=== PATIENT | male | born 1945 | race Caucasian/White ===

== ENCOUNTER 2025-03-09 14:12 | Emergency (ER) | payer MEDICARE, SELFPAY ==
--- NOTE | ~2025-03-09 | XR_ITS ---
Clinical history:Left chest pain EXAM:X-ray chest one view portable TECHNIQUE:AP portable upright frontal Comparisons:None available FINDINGS: Heart is not enlarged. No pneumothorax. No pleural effusion. No free air the diaphragm. Small opacities in the mid and lower lungs. IMPRESSION: 1. Small opacities in the mid and lower lungs which represents atelectasis/scarring or infiltrates. If symptoms persist or worsen, consider a short-term follow-up study or additional imaging for further assessment. Reviewed, dictated and finalized at location Q. IMPRESSION: 1. Small opacities in the mid and lower lungs which represents atelectasis/scar ring or infiltrates. If symptoms persist or worsen, consider a short-term follow-up study or additio nal imaging for further assessment.
[2025-03-09 14:12] VITALS: BP 160/91; PULSE 60; RESP 18; TEMP 36.6; O2SAT 99
--- NOTE | 2025-03-09 14:15 | ECG_ITS ---
Test Date: 2025-03-09 14:19:07 Measurements Intervals [place] Rate: 47 P: -7 [place]: 182 QRS: 5 QRSD: 122 T: 20 QT: 454 QTc: 403 Interpretive Statements SINUS BRADYCARDIA INCOMPLETE RIGHT BUNDLE BRANCH BLOCK BORDERLINE T WAVE ABNORMALITY- INFERIOR LEADS BASELINE ARTIFACT- I, II, III, AVR, AVL, AVF, V2 ABNORMAL ECG No previous ECG available for comparison Electronically Signed On 03-09-2025 14:41:45 CDT by Dennys Stringer D.O.
--- NOTE | 2025-03-09 14:30 | ED_ITS ---
HPI - Extremity Injury (Upper) General Chief Complaint: Extremity Injury, Upper Stated Complaint: left shoulder pain Time Seen by Provider: 03/09/25 14:15 Course Vital Signs Vital signs: Vital Signs Temperature 36.6 C 03/09/25 14:12 Pulse Rate 60 03/09/25 14:12 Respiratory Rate 18 03/09/25 14:12 Blood Pressure 160/91 H 03/09/25 14:12 Pulse Oximetry 99 03/09/25 14:12 Oxygen Delivery Room Air 03/09/25 14:12 Temperature 36.6 C 03/09/25 14:12 Pulse Rate 60 03/09/25 14:12 Respiratory Rate 18 03/09/25 14:12 Blood Pressure 160/91 H 03/09/25 14:12 Pulse Oximetry 99 03/09/25 14:12 Oxygen Delivery Room Air 03/09/25 14:12 Discharge Plan Discharge Patient Language: Norwegian Follow-up/Referrals: UNKNOWN,DOCTOR [Primary Care Provider]
--- NOTE | 2025-03-09 14:38 | ED_ITS ---
HPI - Chest Pain General Chief Complaint: Extremity Injury, Upper Stated Complaint: left shoulder pain Time Seen by Provider: 03/09/25 14:15 Source: patient Mode of arrival: ambulatory Limitations: no limitations History of Present Illness HPI narrative: 79-year-old male with a history of hypertension, dyslipidemia, BPH, dementia presents to the ED with a 3 day history --left chest pain. No radiation of the pain. 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 No lightheadedness or dizziness. No shortness of breath. No fever or chills. No injury to the left shoulder No history of a prior stress test or cardiac catheterization. MD complaint: chest pain Onset (ago): day(s) (Three days) Timing of current episode: constant Prior episodes: No Onset: during rest Pain location: left chest Pain radiation: left shoulder Severity: moderate Pain scale (0-10): 6 Quality: aching Relieving factors: nothing Exacerbating factors: nothing Treatment prior to arrival: none and aspirin Risk Factors Coronary artery disease risk factors: hyperlipidemia and hypertension Thoracic aortic dissection risk factors: longstanding hypertension Review of Systems 2 Review of Systems: All systems reviewed & are unremarkable except as noted in HPI and below Constitutional: Constitutional: Reports as per HPI and Reports no additional constitutional complaints Eyes: Eyes: Reports as per HPI and Reports no additional eye complaints ENT: Reports system reviewed and no additional complaints, except as documented and Reports as per HPI Cardiovascular: Cardiovascular: Reports as per HPI, Reports no additional cardiovascular complaints and Reports chest pain Comments: Left chest pain Respiratory: Respiratory: Reports as per HPI and Reports no additional respiratory complaints Gastrointestinal: Gastrointestinal: Reports as per HPI and Reports no additional gastrointestinal complaints Genitourinary: Genitourinary: Reports no additional male genitourinary complaints and Reports as per HPI Musculoskeletal: Musculoskeletal: Reports no additional musculoskeletal complaints and Reports as per HPI Integumentary/Breasts: Skin/Breast: Reports system reviewed and no additional complaints, except as docu and Reports as per HPI Neurologic: Reports system reviewed and no additional complaints, except as documented and Reports as per HPI Psychiatric: Psychiatric: Reports no additional psychiatric complaints and Reports as per HPI Endocrine: Endocrine: Reports no additional endocrine complaints and Reports as per HPI Hematologic/Lymphatic: Hematologic/Lymphatic: Reports no additional hematologic/lymphatic complaints and Reports as per HPI Allergic/Immunologic: Allergic/Immunologic: Reports no additional allergic/immunologic complaints and Reports as per [facility] Past Medical History Medical History Dyslipidemia BPH (benign prostatic hyperplasia) Hypertension Dementia Social History Social History Social History: Nonsmoker Exam 2 Narrative: Blood pressure 160/91. Oxygen saturation of 99% on room air with a respiratory rate of 18 Const: Nutritional Appearance: well nourished Orientation/consciousness: p atient oriented x3 Limitations: no limitations HENMT: Head: normal to inspection Ears: external ears normal F radha/Nose/Sinus: Normal external nose present Face and sinus: normal facial exam Mouth: Yes Normal oral and palatal mucosa present Teeth and gingiva: dentition normal Throat: posterior oropharynx normal Eyes: Conjunctivae: conjunctivae normal Pupils: Equal, round and reactive pupils present EOM: EOMs intact bilaterally Direct Ophthalmoscopy: no photophobia Neck: Neck: normal visual inspection, no lymphadenopathy and no meningeal signs Chest: Chest palpation & inspection: normal inspection of the chest and abnormal inspection of the chest Resp: Effort & Inspection: normal respiratory effort Auscultation: clear to auscultation bilaterally Cardio: Rate: regular rate Rhythm: regular rhythm Heart sounds: Murmur heart sound present GI: GI Palp: Yes Soft to palpation Other: No tenderness/rigidity/rebound. : General: Yes no CVA tenderness Back/Spine/Pelvis: Back: no CVA tenderness Skin: General skin exam: normal color Rashes: no rashes Wounds: no wounds Neuro: General: patient oriented x3, moves all extremities, no meningeal signs, no focal motor deficits and CN's II-XI intact bilaterally Speech: n ormal speech Extrem: General: normal to inspection and edema Psych: Mental Status: mental status grossly normal Affect: normal affect Course Course Emergency Course: Left shoulder pain Left chest pain--patient has left chest pain for the past 1 day. Pain is unprovoked. No radiation of the pain. EKG did not show any acute ST elevation. Patient is noted to have normal troponin. Will advise the patient to follow up with his primary care physician. Chest x-ray revealed right mid and right lower lobe infiltrates. The patient does not have any respiratory symptoms. He is afebrile with an oxygen saturation of 99% on room air. Urinary tract infection will treat with Levaquin Vital Signs Vital signs: Vital Signs Temperature 36.6 C 03/09/25 14:12 Pulse Rate 60 03/09/25 14:12 Respiratory Rate 18 03/09/25 14:12 Blood Pressure 160/91 H 03/09/25 14:12 Pulse Oximetry 99 03/09/25 14:12 Oxygen Delivery Room Air 03/09/25 14:12 Temperature 36.6 C 03/09/25 14:12 Pulse Rate 60 03/09/25 14:12 Respiratory Rate 18 03/09/25 14:12 Blood Pressure 160/91 H 03/09/25 14:12 Pulse Oximetry 99 03/09/25 14:12 Oxygen Delivery Room Air 03/09/25 14:12 MDM - Chest Pain MDM Narrative Medical decision making narrative: Left shoulder pain Left chest pain Urinary tract infection Differential Diagnosis Differential diagnosis: Likely pneumothorax and stable angina Medical Records Data Attestation: I reviewed the patient's medical records. Lab Data Attestation: I reviewed the patient's lab results. 03/09/25 14:57 03/09/25 14:57 Labs: Lab Results 03/09/25 03/09/25 03/09/25 Range/Units 14:55 14:57 15:29 WBC 7.2 (4.8-10.8) K/mm3 RBC 3.86 L (4.70-6.10) M/mm3 Hgb 12.2 L (12.4-15.3) g/dL Hct 36.6 L (37.0-46.0) % MCV 94.8 (78.0-102.0) fL MCH 31.6 H (27.0-31.0) pg MCHC 33.3 (32-36) g/dL RDW 13.1 (11.6-14.4) % Plt Count 179 (150-420) K/mm3 MPV 10.2 (8.7-11.0) fl Immature Gran % (Auto) 0.3 H (0.0-0.0) % Neut % (Auto) 59.7 (50.0-70.0) % Lymph % (Auto) 26.9 (18.0-42.0) % [place] % (Auto) 10.1 (2.0-11.0) % Eos % (Auto) 2.6 (1.0-6.0) % Baso % (Auto) 0.4 (0.0-1.0) % Lymph # (Auto) 1.94 (1.10-4.50) K/mm3 [place] # (Auto) 0.73 (0.10-0.90) K/mm3 Eos # (Auto) 0.19 (0.02-0.50) K/mm3 Baso # (Auto) 0.03 (0.00-0.10) K/mm3 Abs Immat Gran (auto) 0.02 H (0.00-0.00) K/mm3 Absolute Neuts (auto) 4.30 (1.70-7.20) K/mm3 Absolute Nucleated RBC 0.00 (0.00-0.00) K/mm3 Nucleated RBC % 0.0 (0-0.0) % Sodium 141 (137-145) mmol/L Potassium 4.0 (3.4-5.0) mmol/L Chloride 107 (98-107) mmol/L Carbon Dioxide 26 (22-30) mmol/L Anion Gap 8 (4-12) mmol/L BUN 17 (9-20) mg/dL Creatinine 1.23 (0.7-1.3) mg/dL Estim Creat Clear Calc 58 ml/min Estimated GFR 57 L (59 - ) Glucose 93 (65-110) mg/dL Calculated Osmolality 293 (285-295) mOsm/kg Lactic Acid 0.9 (0.4-2.0) mmol/L Calcium 9.1 (8.4-10.2) mg/dL Total Bilirubin 0.8 (0.2-1.3) mg/dL AST 29 (17-59) U/L ALT 18 (6-50) U/L Alkaline Phosphatase 83 (38-126) U/L Total Creatine Kinase 76 (55-170) U/L Troponin I < 0.012 (0.000-0.034) ng/mL NT-Pro-B Natriuret Pep 263 H (19.9-100) pg/mL Total Protein 6.9 (6.3-8.2) g/dL Albumin 4.1 (3.5-5.1) g/dL Lipase 88 (23-300) U/L Urine Color Yellow (Yellow) Urine Appearance Clear (Clear) Urine pH 6.0 (5.0-8.0) Ur Specific [place] >= 1.030 H (1.010-1.020) Urine Protein Trace H (Negative) Urine Glucose (UA) Negative (Negative) Urine Ketones Negative (Negative) Ur Blood (Man) Negative (Negative) Urine Nitrate Negative (Negative) Urine Bilirubin Negative (Negative) Urine Urobilinogen 0.2 (0.2-1.0) mg/dL Leukocyte Esterase Rfl 1+ H (Negative) [place]/UL Urine RBC None seen (0-2) /hpf Urine WBC 10-15 H (0-3) /hpf Ur Squamous Epith Cells Moderate H (Few) /hpf Urine Bacteria 1+ H (None) /hpf ECG Data EKG #1: ECG completion date: 03/09/25 ECG completion time: 14:19 Interpretation: Sinus bradycardia heart rate of 47. Normal axis. Intraventricular conduction defect. No ST elevation. Discharge Plan Discharge Clinical Impression: Left-sided chest pain Urinary tract infection Qualifiers: Urinary tract infection type: site unspecified Hematuria presence: without hematuria Qualified Code(s): N39.0 - Urinary tract infection, site not specified Patient Disposition: Home Condition: Stable Instructions: Antibiotic Form, Chest Pain (ED), Urinary Tract Infection in Men (DC) Additional Instructions: Advised to follow-up with primary care physician to ensure clearance of UTI and to schedule a stress test for the left chest pain Patient Language: Fijian Prescriptions: New amoxicillin-pot clavulanate 875-125 mg tablet 1 tablet PO Q12H Qty: 14 0RF Follow-up/Referrals: UNKNOWN,DOCTOR [Non-Staff] Time of Disposition: 16:21 Quality HEART score for chest pain patients History: slightly suspicious ECG: normal Age: > or = to 65 years Risk factors: 1 or 2 risk factors Troponin: < or = to 1x normal limit Heart score: 3
[2025-03-09 15:02] LABS: Hematocrit 36.6 % (37.0-46.0); Hemoglobin 12.2 g/dL (12.4-15.3); Immature Granulocyte Percent A 0.3 % (0.0-0.0); Lymphocytes Absolute Auto 1.94 K/mm3 (1.10-4.50); Mean Corpuscular HGB Conc 33.3 g/dL (32-36); Mean Corpuscular Hemoglobin 31.6 pg (27.0-31.0); Mean Corpuscular Volume 94.8 fL (78.0-102.0); Nucleated Red Blood Cells Absolute Auto 0.00 K/mm3 (0.00-0.00); Nucleated Red Blood Cells Perc 0.0 % (0-0.0); Platelet Count Result 179 K/mm3 (150-420); Red Blood Count 3.86 M/mm3 (4.70-6.10); White Blood Count 7.2 K/mm3 (4.8-10.8)
[2025-03-09 15:15] LABS: Alanine Aminotransferase 18 U/L (6-50); Albumin Level 4.1 g/dL (3.5-5.1); Alkaline Phosphatase 83 U/L (38-126); Anion Gap 8 mmol/L (4-12); Aspartate Amino Transferase 29 U/L (17-59); Bilirubin,Total 0.8 mg/dL (0.2-1.3); Blood Urea Nitrogen 17 mg/dL (9-20); Calcium 9.1 mg/dL (8.4-10.2); Carbon Dioxide 26 mmol/L (22-30); Chloride 107 mmol/L (98-107); Creatine Kinase 76 U/L (55-170); Estimated CRCL calculation 58 ml/min; Estimated Glomerular Filt Rate 57; Glucose 93 mg/dL (65-110); Lipase 88 U/L (23-300); Osmolality Calculated 293 mOsm/kg (285-295); Potassium 4.0 mmol/L (3.4-5.0); Sodium 141 mmol/L (137-145); Total Protein 6.9 g/dL (6.3-8.2)
[2025-03-09 15:26] LABS: NT Pro B Type Natriuretic Pept 263 pg/mL (19.9-100); Troponin I < 0.012 ng/mL (0.000-0.034)
[2025-03-09 15:34] LABS: Add Urine Microscopic? YES; Appearance Urine Clear (Clear); Glucose Urine UA Negative (Negative); Leukocyte Esterase Ur 1+ LEU/UL (Negative); Nitrate Urine Negative (Negative); Specific Grav Ur >= 1.030 (1.010-1.020)
--- OUTSIDE RECORDS SUMMARY | 2025-03-09 16:00 | XMS_ITS | Clinical Summary ---
Author Organization [facility] Address [address] [place] [address] Care Team Providers Care Body And Frame Man Name Role Phone Tom Palomino MD Primary Care Provider [phone] Jarvis Vallecillo MD Unavailable Jose Miguel Marte MD Unavailable [phone] Jarret Aggarwal MD Unavailable [phone] Madhuri Franco MD Unavailable [phone] Maren Allen MD Unavailable [phone] Allergies No known active allergies Medications aspirin (ASPIRIN LOW DOSE) 81 mg tablet take 1 tablet (81MG) by ORAL route every day 0 010 Active albuterol HFA (PROVENTIL HFA,VENTOLIN HFA,PROAIR HFA) 90 mcg/actuation inhaler Inhale 2 puffs every 4 (four) hours as needed for wheezing. 3 Inhaler 1 018 Active cetirizine (ZyrTEC) 10 mg tablet Take 1 tablet (10 mg total) by mouth nightly Active finasteride (PROSCAR) 5 mg tabletIndications:Ernst n prostatic hyperplasia without urinary obstruction TAKE 1 TABLET BY MOUTH DAILY 90 tablet 3 025 Active losartan (COZAAR) 50 mg tablet TAKE 1 TABLET BY MOUTH DAILY 90 tablet 3 025 Active fluorouraciL (EFUDEX) 5 % cream 025 Active ergocalciferol (Vitamin D2) 50,000 unit capsuleIndications:Saranya min D Deficiency Take 1 capsule (50,000 Units total) by mouth once a week 12 capsule 3 025 2025 Active memantine (NAMENDA) 10 mg tabletIndications:Moder ate to Severe Alzheimer's Type Dementia Take 1 tablet (10 mg total) by mouth 2 (two) times a day 180 tablet 3 025 2025 Active donepeziL (ARICEPT) 10 mg tabletIndications: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, psychotic disturbance, mood disturbance, or anxiety Take half tablet by mouth once a day for two weeks, then one tablet once a day 90 tablet 3 Active omeprazole (PriLOSEC) 40 mg capsule TAKE 1 CAPSULE BY MOUTH DAILY 90 capsule 1 025 Active simvastatin (ZOCOR) 40 mg tabletIndications:Pure hypercholesterolemia TAKE 1 TABLET BY MOUTH IN THE EVENING 90 tablet 1 025 Active doxazosin (CARDURA) 4 mg tabletIndications:Benig n prostatic hyperplasia without urinary obstruction TAKE 1 TABLET BY MOUTH DAILY 90 tablet 1 025 Active escitalopram (LEXAPRO) 10 mg tabletIndications: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, psychotic disturbance, mood disturbance, or anxiety,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) TAKE ONE-HALF TABLET BY MOUTH DAILY FOR 14 DAYS, THEN 1 TABLET BY MOUTH DAILY FOR 14 DAYS 21 tablet 11 Active omeprazole (PriLOSEC) 40 mg capsule TAKE 1 CAPSULE BY MOUTH DAILY 90 capsule 3 024 2024 Discontinued simvastatin (ZOCOR) 40 mg tabletIndications:Pure hypercholesterolemia TAKE 1 TABLET BY MOUTH IN THE EVENING 90 tablet 3 024 2024 Discontinued doxazosin (CARDURA) 4 mg tabletIndications:Benig n prostatic hyperplasia without urinary obstruction TAKE 1 TABLET BY MOUTH DAILY 90 tablet 3 024 2024 Discontinued escitalopram (LEXAPRO) 10 mg tabletIndications: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, psychotic disturbance, mood disturbance, or anxiety,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 Will consider wound clinic referral if persisting beyond 2 weeks total Vitamin D deficiency, unspecified 03/21/2020 Assessment & Plan (03/24/2020 3:41 PM POLE LIFT OPERATOR): Vitamin-D is low today Will start him on vitamin-D supplementation, ergocalciferol 50,000 international units once weekly Stage 3a chronic kidney disease 03/21/2020 Assessment & Plan (03/24/2020 3:43 PM POLE LIFT OPERATOR): Stable Encounter for Medicare annual wellness exam 03/12 Assessment & Plan (04/16/2023 9:33 AM POLE LIFT OPERATOR): A(n) yearly Medicare Annual Wellness Visit has been performed today. Rosalinda Padgett is up to date on screening tests. He is in need of None- no screening indicated at this time. He is not up to date on needed preventative vaccinations; He is in need of Tdap/Td, Influenza, Zoster, and Covid-19 (booster). We discussed healthy lifestyle habits, educational material has been given. Medications reviewed, changes documented as per the medical record and discussed with patient along with risks vs benefits. Return in 6 months Assessment & Plan (04/21/2022 12:26 PM POLE LIFT OPERATOR): A(n) yearly Medicare Annual Wellness Visit has been performed today. Rosalinda Padgett is up to date on screening tests. He is in need of None- no screening indicated at this time He is not up to date on needed preventative vaccinations; He is in need of Tdap/Td, Influenza, Zoster and Covid-19 (booster). Influenza vaccination given today; will need to get the others at pharmacy Awaiting labs Will continue current regimen Encouraged tighter adherence to DASH regimen Azithromycin; may also take Claritin or Zyrtec for running nose, etc. Assessment & Plan (03/25/2021 5:28 PM POLE LIFT OPERATOR): A yearly Medicare Annual Wellness Visit has been performed today. Rosalinda Padgett is up to date on screening tests. He is in need of None- no screening indicated at this time- these have been ordered. He is not up to date on needed preventative vaccinations; He is in need of Zoster. These have been ordered/arranged unless otherwise indicated. Continuing current regimen Labs reviewed; ordered labs for next visit Continuing vitamin D supplementation Assessment & Plan (03/21/2020 11:25 AM POLE LIFT OPERATOR): A yearly Medicare Annual Wellness Visit has been performed today. Rosalinda Padgett is up to date on screening tests. He is in need of None- no screening indicated at this time- these have been ordered. He is not up to date on needed preventative vaccinations; He is in need of Tdap/Td and Influenza. These have been ordered/arranged unless otherwise indicated. Gastroesophageal reflux disease without esophagi tis 12/14/2019 Assessment & Plan (07/02/2020 1:38 PM POLE LIFT OPERATOR): Symptoms controlled Continuing omeprazole Assessment & Plan (03/24/2020 3:42 PM POLE LIFT OPERATOR): Omeprazole is controlling symptoms. Renal function has been stable Assessment & Plan (12/14/2019 11:33 AM CDT): Continue on current meds (omeprazole), encouraged healthy diet and exercise Avoid trigger foods including: carbonated beverages, caffeine, spicy, fried foods, tomatoes, cucumbers, and mint Avoid eating/drinking anything for at least 2 hours before bed. 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 Overview (08/15/2016): IMPOTENCE, ORGANIC ORIGN Pure hypercholesterolemia 09/25/2013 Overview (08/15/2016): PURE HYPERCHOLESTEROLEM Assessment & Plan (03/24/2020 3:44 PM POLE LIFT OPERATOR): Continue on simvastatin Liver enzymes are within range No side effects reported from statin therapy Assessment & Plan (12/14/2019 11:27 AM CDT): Discussed/ordered labs, Condition is stable encouraged healthy, low carbohydrate lifestyle and at least 150min/week of exercise, continue on Simvastatin 40mg Received lab results: Blood sugar, kidney numbers, liver numbers and electrolytes are all normal Thyroid level is normal Blood count showed no sign of infection but slight anemia... will monitor Triglycerides (fatty chol) normal <150, your results 124 HDL (good chol) normal >45 male and >55 female, your results 31 LDL (bad chol) normal <100, your results 73 non-HDL (risk factor) normal <100, your results 98 Adiposity 09/25/2013 Overview (08/16/2016): OBESITY NOS Assessment & Plan (10/20/2023 2:25 PM CDT): BMI Follow-up includes: nutrition counseling and education provided. Assessment & Plan (04/16/2023 10:52 AM POLE LIFT OPERATOR): BMI Follow-up includes: education provided. Assessment & Plan (10/15/2022 9:58 AM CDT): BMI Follow-up includes: nutrition counseling, exercise counseling and education provided. Assessment & Plan (10/16/2021 12:16 PM CDT): BMI Follow-up includes: nutrition counseling and exercise counseling. Assessment & Plan (07/02/2020 1:37 PM POLE LIFT OPERATOR): BMI Follow-up includes: nutrition counseling and exercise counseling. Assessment & Plan (03/24/2020 3:40 PM POLE LIFT OPERATOR): BMI Follow-up includes: nutrition counseling, exercise counseling and education provided. Periodic limb movement disorder 09/20/2013 Overview (08/16/2016): Periodic limb movement disorder Hypersomnia with sleep apnea 08/26/2013 Overview (08/15/2016): Hypersomnia AGUS treated with BiPAP 08/26/2013 Overview (08/15/2016): Obstructive sleep apnea syndrome Assessment & Plan (07/02/2020 1:38 PM POLE LIFT OPERATOR): Continues follow up with Dr. Vallecillo Assessment & Plan (03/24/2020 3:40 PM POLE LIFT OPERATOR): He reports compliance with BiPAP Appears to be helping him with symptoms. I did dependency counselor him that weight loss would further help his condition Assessment & Plan (12/14/2019 11:30 AM CDT): Pt states using bi pap for 7 hours/night 7 nights/wk Pt states less daytime somnolence, feels better when using it. 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 Encouraged more exercise, improved diet lower in fat and carbohydrate. Continuing current regimen HMV in 6 months Assessment & Plan (03/24/2020 3:43 PM POLE LIFT OPERATOR): Blood pressure is controlled Continuing on losartan, furosemide period continuing to monitor renal function as well. Assessment & Plan (12/14/2019 11:29 AM CDT): Labs stable, continue the Lasix and Losartan and increase water intake and decrease salt intake Resolved Problems Problem Noted Date Diagnosed Date Resolved Date Alzheimer's disease, unspecified 04/16/2023 07/06/2024 Retinal hemorrhage of right eye 03/31/2018 03/21/2020 Morbid obesity with BMI of 45.0-49.9, adult 04/08/2017 03/21/2020 Screening for prostate cancer 02/20/2017 08/28/2017 Bronchitis 07/07/2015 08/28/2017 Overview (08/16/2016): Bronchitis Elevated blood-pressure read ing without diagnosis of hypertension 09/25/2013 08/28/2017 Overview (08/16/2016): ELEV BL PRES W/O HYPERTN Morbid obesity 08/26/2013 03/21/2020 Overview (08/16/2016): Morbid obesity Assessment & Plan (12/14/2019 11:28 AM CDT): Patient has lost 11lbs since June. Has been focusing more on diet and exercise through yardwork... Keep up the good work. 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); Severe late onset Alzheimer's dementia without behavioral disturbance, psychotic disturbance, mood disturbance, or anxiety from Last 3 Months Immunizations Immunization Administration Dates Next Due Influenza, Quadrivalent, Hig h Dose, Preservative Free, Intrr 04/16/2023,04/16/2022,03/22/2021,03/12 Influenza, Quadrivalent, Spl it, Intramuscular 07/11/2015 Influenza, Split 02/24/2013,03/08/2010, 9 Influenza, Trivalent, High D ose, Split, Preservative Free, Intramuscular 04/21/2024,03/16/2019,03/02/2018,02/09,02/09/2016 03/02/2019 Influenza, Trivalent, IM (MDV) 02/14/2014,2007 Influenza, Unspecified 05/12/2022(Deferr ed: Patient Refused),05/12/2021(Deferred: Patient Refused) Pneumococcal Conjugate PCV 13 02/20/2017 Pneumococcal Polysaccharide PPV23 03/02/2018 Td, adsorbed 04/01/2003 Surgical History Surgery Date Site/Laterality Comments OTHER SURGICAL HISTORY right epipidydimal problem: g.u. surgery CIRCUMCISION 05/12/1968 - 05/11/1969 SKIN BIOPSY 05/12/2020 - 05/11/2021 scalp MOHS SURGERY 05/12/2021 - 05/11/2022 nose Medical History Medical History Date Comments Hx Other Medical right epipidydi mal problem Hypertension Hypertension Hyperlipidemia Hyperlipidemia Obesity BPH (benign prostatic hyperplasia) Obstructive sleep apnea treated with BiPAP Periodic limb movement disorder (PLMD) Family History Medical History Relation Name Comments Colon cancer Brother 1 Cancer -colon; Coronary artery disease Brother 2 Stephanie nary artery disease; Hypertension Father Hypertension; Alzheimer's disease Mother Alzheime r's disease; Cancer Other 1 Family history of Cancer; Hypertension Other 2 Family history of Hypertension; Relation Name Status Comments Brother 1 Brother 2 Father Mother Other 1 Other 2 Social History Tobacco Use Types Packs/Day Years Used Date Smoking Tobacco: Never Smokeless Tobacco: Never Tobacco Cessation:Counseling Given: Not Answered Alcohol Use Standard Drinks/Week Comments No 0 (1 standard drink = 0.6 oz pur e alcohol) Humiliation, Afraid, Rape, and Kick questionnair e Answer Date Recorded Fear of Current or Ex-Partner No Emotionally Abused No 03/16/2019 Physically Abused No 03/16/2019 Sexually Abused No 03/16/2019 Social Connection and Isolation Panel Answer Date Recorded In a typical week, how many times do you talk on the phone with family, friends, or neighbors? Twice a week 03/22/20 How often do you get togethe r with friends or relatives? Once a week 03/22/2021 How often do you attend chur ch or scientologist services? 1 to 4 times per year 03/22/2021 Do you belong to any clubs o r organizations such as baptism groups, unions, fraternal or athletic groups, or school groups? No 03/22/2021 How often do you attend meet ings of the clubs or organizations you belong to? Never 03/22/2021 Are you , , di vorced, , never , or living with a partner? 03/22/2021 AUDIT-C Answer Date Recorded Q1: How often do you have a drink containing alcohol? Never 04/16/2022 Q2: How many drinks containi ng alcohol do you have on a typical day when you are drinking? Patient does not drink Q3: How often do you have si x or more drinks on one occasion? Never 04/16/2022 Overall Financial Resource Strain (CARDIA) Answe r Date Recorded How hard is it for you to pa y for the very basics like food, housing, medical care, and heating? Not hard at all 03/22/2021 PHQ-2 Answer Date Recorded PHQ-2 Total Score (If total score is 3 or more points, staff should administer the PHQ-9) 0 11/11/2024 [facility] - Occupational Stress Questionnaire Answer Date Recorded Do you feel stress - tense, restless, nervous, or anxious, or unable to sleep at night because your mind is troubled all the time - these days? Only a little 03/22/2021 Exercise Vital Sign Answer Date Recorde d On average, how many days pe r week do you engage in moderate to strenuous exercise (like a brisk walk)? 4 days Minutes of Exercise per Session Not on file 04/16/2022 Hunger Vital Sign Answer Date Recorded Within the past 12 months, y ou worried that your food would run out before you got the money to buy more. Never true 03/22/20 21 Within the past 12 months, t he food you bought just didn't last and you didn't have money to get more. Never true 03/22/2021 PRAPARE - Transportation Answer Date Re corded In the past 12 months, has l ack of transportation kept you from medical appointments or from getting medications? No 03/12 In the past 12 months, has l ack of transportation kept you from meetings, work, or from getting things needed for daily living? No 03/22/2021 Housing Stability Vital Sign Answer Temo e Recorded Unable to Pay for Housing in the Last Year Not o n file 03/22/2021 Number of Places Lived in the Last Year Not on f ile 03/22/2021 In the last 12 months, was t here a time when you did not have a steady place to sleep or slept in a retirement (including now)? No 03/22/2021 Personal Safety Answer Date Recorded Have you ever been in or are you currently in a harmful physical or emotional relationship or is someone making you feel afraid or unsafe? Denies 08/15/2024 Education Answer Date Recorded What is the highest level of school you have completed or the highest degree you have received? Some college, no degree 03/16/2019 Sex and Gender Information Value Date Recorded Sex Assigned at Not on file Legal Sex Male 5:05 PM POLE LIFT OPERATOR Gender Identity Not on file Sexual Orientation Not on file Obstetrics History Last Filed Vital Signs Vital Sign Reading Time Taken Comments Blood Pressure 124/78 12/06/2024 1:23 PM CDT Pulse 94 12/06/2024 1:23 PM CDT Temperature 36.4 C (97.6 F) 11/11/2024 1:04 PM CDT Respiratory Rate 16 11/11/2024 1:04 PM CDT Oxygen Saturation 94% 12/06/2024 1:23 PM CDT Inhaled Oxygen Concentration - - Weight 120.7 kg (266 lb 3.2 oz) 12/06/2024 1:23 PM CDT Height 177.8 cm (5' 10) 12/06/2024 1:23 PM CDT Body Mass Index 38.2 12/06/2024 1:23 PM CDT Plan of Treatment Health Maintenance Due Date Last Done Comments Zoster Vaccine (1 of 2) 11/30/1997 DTaP/Tdap/Td Vaccine (1 - Tdap) 04/02/2003 3 Covid-19 Vaccine (4 - 2024-2 6 season) 2025 04/24/2021, 08/18/2020, 07/19/2020 Influenza Vaccine (#1) 2025 , 04/16/2023, 04/16/2022, Additional history exists Well Visit 65+ 04/21/2025 04/21/2024, 10/2022, 04/16/2022, Additional history exists Depression Screening 11/11/2025 11/11/2024, 04/21/2024, 10/16/2023, Additional history exists Fall Risk Assessment 11/11/2025 11/11/2024, 04/21/2024, 04/16/2023, Additional history exists Colon Cancer Screening-CT Colonography Discontinued 10/09/2016, 09/17/2010 Colon Cancer Screening-Colonoscopy Discontinued 10/09/2016, 09/17/2010 Colon Cancer Screening-DNA Stool Discontinued 10/10/19 17, 09/17/2010 Colon Cancer Screening-FIT Discontinued 10/09/2016, Colon Cancer Screening-FOBT Discontinued 10/09/2016, 0 09/17/2010 Colon Cancer Screening-Sigmoidoscopy Discontinued 10/09/2016, 09/17/2010 Colorectal Cancer Screening Discontinued Pneumococcal vaccine 65+ Completed 03/02/2018, 02/09 Hepatitis C Screening Completed 08/26/2018 Hepatitis B Screening Completed 11/11/2024 Procedures Procedure Name Priority Date/Time Associated Diagnosis Comments HEPATITIS C ANTIBODY Routine 08/26/2018 11:33 AM CDT Encounter for hepatitis C screening test for low risk patient COLONOSCOPY REPORT 10/09/2016 from Last 3 Months or Most Recently Relevant to Health Maintenance Results * Hepatitis C antibody (08/26/2018 11:33 AM CDT) Hep C Ab Negative Negative BRITTANY COULTER (ALEXIA) Comment:Testing performed by : [facility], [address] [place] [address]., [id number] Blood specimen (specimen) 08/26/2018 11:33 AM CDT 08/26/2018 7:17 PM CDT Narrative BRITTANY YFN (ALEXIA) - 08/26/2018 8:41 PM CDT Tom Palomino MD LAB MICROBIOLOGY - GENERAL ORDERABLES Final Result Performing Organization Address City/State/[facility] Co de Phone Number BRITTANY YFN (ALEXIA) 1 [facility] Department [place] [address] * COLONOSCOPY REPORT (10/09/2016) Anatomical Region Laterality Modality Other Narrative 10/09/2016 Ordered by an unspecified provider. Historical Provider GI PROCEDURE ORDERABLES F inal Result from Last 3 Months or Most Recently Relevant to Health Maintenance Insurance [facility] MEDICARE MEDICARE [facility] MEDICARE [facility] MEDICARE SUPPLEMENT Member Subscriber Plan / Payer (Ef fective 2014-Present) Name:Rosalinda Padgett Relation to Subscriber:Self Name:Rosalinda Padgett Payer ID:[id number] Type:COMMERCIAL Address: [address] [place] [id number] Care Teams Body And Frame Man Relationship Specialty Start Date End Date Tom Palomino MD [address] [facility] [address] [place] [address] PCP - General 08/09/16 Jarvis Vallecillo MD [address] [facility] [address] [place] [address] Consulting Physician Neurology 03/16/19 Jose Miguel Marte MD [address] [id number] Surgeon Ophthalmology 03/16/19 Jarret Aggarwal MD [address] [address] Consulting Physician Gastroenterology 03/16/19 Madhuri Franco MD [address] [place] [address] Consulting Physician Dermatology 03/16/19 Maren Allen MD [address] [place], [place] [id number] Consulting Physician Dermatology 04/16/22
--- OUTSIDE RECORDS SUMMARY | 2025-03-09 16:00 | XMS_ITS | Encounter Summary ---
Author Organization [facility] Address [address] [facility] [place] [address] Care Team Providers Care Virtual Classroom Manager Name Role Phone Unavailable Primary Care Provider Unavailabl e Encounter Details Date Type Department Care Team (Late st Contact Info) Description 09/30/2024 Lab Requisition [facility] - DermPath Lab [address] [facility], [facility] [place] [address] Vangie Levy MD [address] 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 Gender Identity Not on file Sexual Orientation Not on file documented as of this encounter Plan of Treatment Not on file documented as of this encounter Procedures Procedure Name Priority Date/Time Associated Diagnosis Comments DERMATOPATHOLOGY Routine 09/30/2024 9:30 AM CDT documented in this encounter Results * DERMATOPATHOLOGY (09/30/2024 9:30 AM CDT) Case Report Dermatopathology Report Case: [id number] Authorizing Provider: Vangie Levy MD Collected: 09/30/2024 09:30 AM Ordering Location: [facility] - Received: 10/01/2024 10:28 AM DermPath Lab Pathologist: Sharon Ramirez MD Specimen: Skin, left lateral brow 1:48 PM CDT DERMATOPATHOLOGY LABORATORY Final Diagnosis Specimen A. SKIN, left lateral brow: ACTINIC KERATOSIS (L57.0) 1:48 PM CDT DERMATOPATHOLOGY LABORATORY at 1348 CDT Clinical History R/O SCC vs. SK, [place] Papule 1:48 PM CDT DERMATOPATHOLOGY LABORATORY Gross Description Specimen A: Received is one formalin filled container labeled with the patient's name and designated left lateral brow. The specimen consists of a shave biopsy measuring 10x8x2 mm. Jar 0. 1:48 PM CDT DERMATOPATHOLOGY LABORATORY Microscopic Description Specimen A. SKIN, left lateral brow: There is focal parakeratosis. The lower half of the epidermis shows disorderly maturation of keratinocytes with nuclear pleomorphism. 1:48 PM CDT DERMATOPATHOLOGY LABORATORY Disclaimer An external and internal positive and negative controls are appropriate for the histochemical, immunohistochemical and immunofluorescence stain(s) in this case (if any), except where stated explicitly. The performance characteristics of the stain(s) cited in this report were developed and its performance characteristic determined by the Dermatopathology Laboratory at [facility], directed by Dr. Radha Abrams. These tests need not be, and therefore are not, approved by the [place] Food and Drug Administration. The tests are used for clinical purposes. Billing Codes Specimen Charges Stain Charges 55452 1 1:48 PM CDT DERMATOPATHOLOGY LABORATORY Embedded Images 1:48 PM CDT DERMATOPATHOLOGY LABORATORY Pathology/Cytolo gy TISSUE SPECIMEN FROM SKIN / Unknown 09/30/2024 9:30 AM CDT 10/01/2024 10:28 AM CDT us Vangie Levy MD LAB - PATHOLOGY/CYTOLOGY ORD ERABLES Final Result DERMATOPATHOLOGY LABORATORY [facility] - Department of Dermatology [facility] Medicine [address] [place] [address], [address]rd [place] [address], [facility] [phone] documented in this encounter Visit Diagnoses Not on filedocumented in this encounter
--- OUTSIDE RECORDS SUMMARY | 2025-03-09 16:00 | XMS_ITS | Encounter Summary ---
Author Organization [facility] Address [address] [place] [address] Phone Care Team Providers Care Hand Stoner Name Role Phone Tom Palomino MD Primary Care Provider [phone] Jarvis Vallecillo MD Unavailable Jose Miguel Marte MD Unavailable + [phone] Jarret Aggarwal MD Unavailable [phone] Madhuri Franco MD Unavailable [phone] Maren Allen MD Unavailable [phone] Encounter Details Date Type Department Care Team (Late st Contact Info) Description 03/28/2018 Ophth Exam [facility] [address] [place] [address] 1st [place] [id number] Matthew Chino MD PhD [address] [place] [address] Social History Tobacco Use Types Packs/Day Years Used Date Smoking Tobacco: Never Smokeless Tobacco: Never Alcohol Use Standard Drinks/Week Comments No 0 (1 standard drink = 0.6 oz pur e alcohol) Sex and Gender Information Value Date Recorded Sex Assigned at Not on file 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 Gender Identity Not on file Sexual Orientation Not on file documented as of this encounter Plan of Treatment Not on file documented as of this encounter Visit Diagnoses Not on filedocumented in this encounter Eye Exam Visual Acuity (Snellen - Linear) Right eye Left eye Dist cc 20/60 20/20 Dist ph cc 20/60 +1 Correction: Glasses Tonometry (Tonopen, 12:51 AM) Right eye Left eye Pressure 18 21 Pupils Dark Light React APD Right eye 4 1 Brisk trc Left eye 4 1 Brisk None Visual Caruso Right eye Left eye Full Restrictions Partial outer inferior temporal, inferior nasal deficiencies Extraocular Movement Right eye Left eye Full, Ortho Full, Ortho Neuro/Psych Oriented x3: Yes Mood/Affect: Normal Dilation Both eyes: 1.0% Mydriacyl, 2 .5% Phenylephrine @ 12:52 AM Color Right eye Left eye Ishihara 03/22 03/22 External Exam Right eye Left eye External Normal Normal Slit Lamp Exam Right eye Left eye Lids/Lashes Normal Normal Conjunctiva/Sclera White and quiet White and manolo et Cornea Clear Clear Anterior Chamber Deep and quiet Deep and quiet Iris Round and reactive Round and crystal ctive Lens 2+ NSC 2+ NSC Vitreous Normal Normal Fundus Exam Right eye Left eye Disc Hyperemic. Superonas al blurred margin with focal edema and single flame-shaped hemorrhage Normal C/D Ratio 0.2 0.45 Macula Normal Normal Vessels Normal Normal Periphery Normal Normal Care Teams Hand Stoner Relationship Specialty Start Date End Date Tom Palomino MD [address] [facility] [address] [place] [address] PCP - General 08/09/16 Jarvis Vallecillo MD [address] [facility] [address] [place] [address] Consulting Physician Neurology 03/16/19 [place] [address] [place] [address] Surgeon Ophthalmology 03/16/19 Jarret Aggarwal MD [address] [place] [id number] Consulting Physician Gastroenterology 03/16/19 Madhuri Franco MD [address] [place] [address] Consulting Physician Dermatology 03/16/19 Maren Allen MD [address] [place] [address] Consulting Physician Dermatology 04/16/22 documented as of this encounter
--- OUTSIDE RECORDS SUMMARY | 2025-03-09 16:00 | XMS_ITS | Encounter Summary ---
Author Organization [facility] Address [address] [facility] [place] [address] Care Team Providers Care Assessment Consultant Name Role Phone Unavailable Primary Care Provider Unavailabl e Encounter Details Date Type Department Care Team (Late st Contact Info) Description 08/25/2023 Lab Requisition [facility] - DermPath Lab [address] 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 Gender Identity Not on file Sexual Orientation Not on file documented as of this encounter Plan of Treatment Not on file documented as of this encounter Procedures Procedure Name Priority Date/Time Associated Diagnosis Comments DERMATOPATHOLOGY Routine 08/25/2023 9:58 AM CDT documented in this encounter Results * DERMATOPATHOLOGY (08/25/2023 9:58 AM CDT) Case Report Dermatopathology Report Case: [id number] Authorizing Provider: Vangie Levy MD Collected: 08/25/2023 09:58 AM Ordering Location: [facility] Physician [facility] - Received: 08/25/2023 04:09 PM DermPath Lab Pathologist: Zuleyka Douglas MD Specimen: Skin, right cheek 12:39 PM CDT DERMATOPATHOLOGY LABORATORY Final Diagnosis Specimen A. SKIN, right cheek: SQUAMOUS CELL CARCINOMA IN SITU, WITH ADNEXAL EXTENSION, PRESENT AT THE BASE OF THE SPECIMEN (D04.39) (see microscopic description and comment) 04/17/202 4 12:39 PM CDT DERMATOPATHOLOGY LABORATORY at 1239 CDT Clinical History R/o SCC; SK 4 12:39 PM CDT DERMATOPATHOLOGY LABORATORY Gross Description Specimen A: Received is one formalin filled container labeled with the patient's name and designated right cheek. The specimen consists of a shave biopsy measuring 8x6x2 mm. Jar 0. 4 12:39 PM CDT DERMATOPATHOLOGY LABORATORY Microscopic Description Specimen A. SKIN, right cheek: The epidermis shows parakeratosis, full thickness disorderly maturation of keratinocytes, mitoses at different levels, and dyskeratotic cells. The proliferation extends down adnexal structures. The lesion extends to the base of the biopsy. COMMENT: An invasive squamous cell carcinoma cannot be ruled out. 12:39 PM CDT DERMATOPATHOLOGY LABORATORY Disclaimer An external and internal positive and negative controls are appropriate for the histochemical, immunohistochemical and immunofluorescence stain(s) in this case (if any), except where stated explicitly. The performance characteristics of the stain(s) cited in this report were developed and its performance characteristic determined by the Dermatopathology Laboratory at [facility], directed by Dr. Radha Abrams. These tests need not be, and therefore are not, approved by the [place] Food and Drug Administration. The tests are used for clinical purposes. Billing Codes Specimen Charges Stain Charges 21529 1 4 12:39 PM CDT DERMATOPATHOLOGY LABORATORY Embedded Images 4 12:39 PM CDT DERMATOPATHOLOGY LABORATORY Pathology/Cytolo gy TISSUE SPECIMEN FROM SKIN / Unknown 08/25/2023 9:58 AM CDT 08/25/2023 4:09 PM CDT us Vangie Levy MD LAB - PATHOLOGY/CYTOLOGY ORD ERABLES Final Result DERMATOPATHOLOGY LABORATORY [facility] - Department of Dermatology [address], 3rd [place] [address], [facility] [phone] documented in this encounter Visit Diagnoses Not on filedocumented in this encounter
--- OUTSIDE RECORDS SUMMARY | 2025-03-09 16:00 | XMS_ITS | Clinical Summary ---
Author Organization [facility] Address [address] [facility] [place] [address] Care Team Providers Care Teacher Industrial Arts Name Role Phone Unavailable Primary Care Provider Unavailabl e Source Comments [facility],non-owned Affiliates and Associated Physician Practices is amultiple site organization consisting of ambulatory clinics and hospital sitesin [place], [place], [place] and [place]. This disclosure is being madepursuant to the Care Everywhere program and may not contain all information available regarding this patient. 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 Gender Identity Not on file Sexual Orientation Not on file Plan of Treatment Health Maintenance Due Date Last Done Comments MEDICARE AWV 12 MONTHS 1945 HEPATITIS C SCREENING 11/26/1965 DTAP/TDAP/TD VACCINES (1 - Tdap) 11/30/1966 PNEUMOCOCCAL VACCINE 50+ (1 of 1 - PCV) 11/30/1997 ZOSTER VACCINE (1 of 2) 11/30/1997 Respiratory Syncytial Virus (RSV) Vaccine Pt: or over 60 yrs (1 - 1-dose 75+ series) 11/30/2022 DEPRESSION SCREENING 05/12/2024 COVID-19 VACCINE (1 - 2023-2 5 season) 2025 INFLUENZA VACCINE (#1) 2025 HEPATITIS B VACCINE Aged Out No longe r eligible based on patient's age to complete this topic HIB VACCINE Aged Out No longer eligi ble based on patient's age to complete this topic HPV VACCINE Aged Out No longer eligi ble based on patient's age to complete this topic MENINGOCOCCAL (Group B) VACC INE SHARED DECISION-MAKING Aged Out No longer eligibl e based on patient's age to complete this topic MENINGOCOCCAL GROUPS A/C/Y/W VACCINE Aged Out No longer eligible b ased on patient's age to complete this topic Insurance MEDICARE [facility] MEDICARE [facility]
[2025-03-09 16:32] VITALS: BP 147/62; PULSE 72; RESP 17; TEMP 36.8; O2SAT 100
--- NOTE | 2025-03-09 16:52 | PC.NURSE ---
On 03/09/25, the student, [NICOLE FLORES ], provided care and [facility] on this patient. I have reviewed the student's documentation and agree with the findings.
--- OUTSIDE RECORDS SUMMARY | 2025-03-09 17:22 | XMS_ITS | Clinical Summary ---
Author Organization [facility] Address [address] [place] [address] Care Team Providers Care Algologist Name Role Phone Tom Palomino MD Primary Care Provider Jarvis Vallecillo MD Unavailable Jose Miguel Marte MD Unavailable [phone] Jarret Aggarwal MD Unavailable [phone] Madhuri Franco MD Unavailable [phone] Maren Allen MD Unavailable [phone] Allergies No known active allergies Medications [...] fluorouraciL (EFUDEX) 5 % cream 025 Active memantine (NAMENDA) 10 mg tabletIndications:Moder ate [...] CAPSULE BY MOUTH DAILY 90 capsule 1 Active simvastatin (ZOCOR) 40 mg tabletIndications:Pure hypercholesterolemia TAKE 1 TABLET BY MOUTH IN THE EVENING 90 tablet 1 Active doxazosin (CARDURA) 4 mg tabletIndications:Benig n prostatic hyperplasia without urinary obstruction TAKE 1 TABLET BY MOUTH DAILY 90 tablet 1 Active escitalopram (LEXAPRO) 10 mg tabletIndications: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, psychotic disturbance, mood disturbance, or anxiety,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) TAKE ONE-HALF TABLET BY MOUTH DAILY FOR 14 DAYS, THEN 1 TABLET BY MOUTH DAILY FOR 14 DAYS 21 tablet 11 Active ergocalciferol (Vitamin D2) 50,000 unit capsuleIndications:Saranya min D Deficiency Take 1 capsule (50,000 Units total) by mouth once a week 12 capsule 3 025 2025 Active omeprazole (PriLOSEC) 40 mg capsule TAKE 1 CAPSULE BY MOUTH DAILY 90 capsule 3 024 2024 Discontinued simvastatin (ZOCOR) 40 mg tabletIndications:Pure hypercholesterolemia TAKE 1 TABLET BY MOUTH IN THE EVENING 90 tablet 3 024 2024 Discontinued doxazosin (CARDURA) 4 mg tabletIndications:Benig n prostatic hyperplasia without urinary obstruction TAKE 1 TABLET BY MOUTH DAILY 90 tablet 3 024 2024 Discontinued ergocalciferol (Vitamin D2) 50,000 unit capsuleIndications:Saranya min D Deficiency Take 1 capsule (50,000 Units total) by mouth once a week 12 capsule 3 025 2024 Discontinued(R eorder) escitalopram (LEXAPRO) 10 mg tabletIndications:Sever e late [...] 03/21/2020 Assessment & Plan (03/24/2020 3:41 PM DYE MACHINE TENDER): Vitamin-D is low today Will start him on vitamin-D supplementation, ergocalciferol 50,000 international units once weekly Stage 3a chronic kidney disease 03/21/2020 Assessment & Plan (03/24/2020 3:43 PM DYE MACHINE TENDER): Stable Encounter for Medicare annual wellness exam 03/12 Assessment & Plan (04/16/2023 9:33 AM DYE MACHINE TENDER): A(n) yearly Medicare Annual Wellness Visit has [...] months Assessment & Plan (04/21/2022 12:26 PM DYE MACHINE TENDER): A(n) yearly Medicare Annual Wellness Visit has [...] etc. Assessment & Plan (03/25/2021 5:28 PM DYE MACHINE TENDER): A yearly Medicare Annual Wellness Visit has [...] supplementation Assessment & Plan (03/21/2020 11:25 AM DYE MACHINE TENDER): A yearly Medicare Annual Wellness Visit has [...] 12/14/2019 Assessment & Plan (07/02/2020 1:38 PM DYE MACHINE TENDER): Symptoms controlled Continuing omeprazole Assessment & Plan (03/24/2020 3:42 PM DYE MACHINE TENDER): Omeprazole is controlling symptoms. Renal function has been stable Assessment & Plan (12/14/2019 11:33 AM CDT): Continue on current meds (omeprazole), encouraged healthy diet and exercise Avoid trigger foods including: carbonated beverages, caffeine, spicy, fried foods, tomatoes, cucumbers, and mint Avoid eating/drinking anything for at least 2 hours before bed. Discussed increased risk of cdif and vit B12 deficiency with shelter use of PPI with pt, would like to remain on medication at this time Anemia 08/31/2018 Assessment & Plan (12/14/2019 11:30 AM CDT): Slightly anemic but will continue to monitor Benign prostatic hyperplasia without urinary obs truction 09/25/2013 Overview (08/15/2016): BPH W/O URINARY OBSTRUCT Assessment & Plan (07/02/2020 1:37 PM DYE MACHINE TENDER): Continuing doxazosin, finasteride Symptoms controlled Assessment & Plan (03/24/2020 3:42 PM DYE MACHINE TENDER): Continues on finasteride, doxazosin. Symptoms are reasonably [...] HYPERCHOLESTEROLEM Assessment & Plan (03/24/2020 3:44 PM DYE MACHINE TENDER): Continue on simvastatin Liver enzymes are within [...] provided. Assessment & Plan (04/16/2023 10:52 AM DYE MACHINE TENDER): BMI Follow-up includes: education provided. Assessment & Plan (10/15/2022 9:58 AM CDT): BMI Follow-up includes: nutrition counseling, exercise counseling and education provided. Assessment & Plan (10/16/2021 12:16 PM CDT): BMI Follow-up includes: nutrition counseling and exercise counseling. Assessment & Plan (07/02/2020 1:37 PM DYE MACHINE TENDER): BMI Follow-up includes: nutrition counseling and exercise counseling. Assessment & Plan (03/24/2020 3:40 PM DYE MACHINE TENDER): BMI Follow-up includes: nutrition counseling, exercise counseling and education provided. Periodic limb movement disorder 09/20/2013 Overview (08/16/2016): Periodic limb movement disorder Hypersomnia with sleep apnea 08/26/2013 Overview (08/15/2016): Hypersomnia AGUS treated with BiPAP 08/26/2013 Overview (08/15/2016): Obstructive sleep apnea syndrome Assessment & Plan (07/02/2020 1:38 PM DYE MACHINE TENDER): Continues follow up with Dr. Vallecillo Assessment & Plan (03/24/2020 3:40 PM DYE MACHINE TENDER): He reports compliance with BiPAP Appears to be helping him with symptoms. I did benefits counselor him that weight loss would further [...] hypertension Assessment & Plan (07/02/2020 1:37 PM DYE MACHINE TENDER): Doing okay Labs reviewed, no red flags today. Encouraged more exercise, improved diet lower in fat and carbohydrate. 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 1 to 4 times per year 03/22/2021 Do you belong to any clubs o r organizations such as buddhist groups, unions, fraternal or athletic groups, or [...] staff should administer the PHQ-9) 0 11/11/2024 [facility] - Occupational Stress Questionnaire Answer Date Recorded [...] place to sleep or slept in a care home (including now)? No 03/22/2021 Personal Safety Answer [...] on file Legal Sex Male 5:05 PM DYE MACHINE TENDER Gender Identity Not on file Sexual Orientation [...] Hep C Ab Negative Negative BRITTANY COULTER ([place]) Comment:Testing performed by : [facility], [address] [place] [address]., [id number] Blood specimen (specimen) 08/26/2018 11:33 AM CDT 08/26/2018 7:17 PM CDT Narrative TEREYORDAN COULTER ([place]) - 08/26/2018 8:41 PM CDT Tom Palomino MD LAB MICROBIOLOGY - GENERAL ORDERABLES Final Result BRITTANY YFN ([place]) [address] [facility] [place] [address] * COLONOSCOPY REPORT (10/09/2016) Anatomical Region Laterality Modality Other Narrative 10/09/2016 Ordered by an unspecified provider. Historical Provider GI PROCEDURE ORDERABLES F inal Result from Last 3 Months or Most Recently Relevant to Health Maintenance Insurance [facility] MEDICARE MEDICARE [facility] MEDICARE [facility] MEDICARE SUPPLEMENT Member Subscriber Plan / Payer (Ef fective 2014-Present) Name:Rosalinda Padgett Relation to Subscriber:Self Name:Rosalinda Padgett Payer ID:[id number] Type:COMMERCIAL Address: [address] [place] [id number] Care Teams Algologist Relationship Specialty Start Date End Date Tom Palomino MD [address] [facility] [address] [place] [address] PCP - General 08/09/16 Jarvis Vallecillo MD [facility] [address] [place] [address] Consulting Physician Neurology 03/16/19 [place] [address] [place] [address] Surgeon Ophthalmology 03/16/19 [place] [address] [place] [id number] Consulting Physician Gastroenterology 03/16/19 Madhuri Franco MD [address] [place] [address] Consulting Physician Dermatology 03/16/19 Maren Allen MD [facility] [place] [address] Consulting Physician Dermatology 04/16/22
--- OUTSIDE RECORDS SUMMARY | 2025-03-09 17:22 | XMS_ITS | Clinical Summary ---
Author Organization [facility] Address [address] [facility] [place] [address] Care Team Providers Care Information Director Name Role Phone Unavailable Primary Care Provider Unavailabl e Source Comments [facility],non-owned Affiliates and Associated Physician Practices is amultiple site organization consisting of ambulatory clinics and hospital sitesin [place], [place], [place] and [place]. This disclosure is being madepursuant to the Care Everywhere program and may not contain all informatio navailable regarding this patient. 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
--- OUTSIDE RECORDS SUMMARY | 2025-03-09 17:22 | XMS_ITS | Encounter Summary ---
Author Organization [facility] Address [address] [facility] [place] [address] Care Team Providers Care Pattern Maker Name Role Phone Unavailable Primary Care Provider Unavailabl e Encounter Details Date Type Department Care Team (Late st Contact Info) Description 09/30/2024 Lab Requisition [facility] - DermPath Lab [address] [facility], [place] [address] Vangie Levy MD [address] [facility] [address] [place] [address] Social History Tobacco Use Types Packs/Day Years Used Date Smoking Tobacco: Never Assessed Sex and Gender Information Value Date Recorded Sex Assigned at Not on file 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 Gender Identity Not on file Sexual Orientation Not on file documented as of this encounter Plan of Treatment Not on file documented as of this encounter Procedures Procedure Name Priority Date/Time Associated Diagnosis Comments DERMATOPATHOLOGY Routine 09/30/2024 9:30 AM CDT documented in this encounter Results * DERMATOPATHOLOGY (09/30/2024 9:30 AM CDT) Case Report Dermatopathology Report Case: [id number] Authorizing Provider: Vangie Levy MD Collected: 09/30/2024 09:30 AM Ordering Location: [facility] Physician [facility] - Received: 10/01/2024 10:28 AM DermPath Lab Pathologist: Sharon Ramirez MD Specimen: Skin, left lateral brow 1:48 PM CDT DERMATOPATHOLOGY LABORATORY Final Diagnosis Specimen A. SKIN, left lateral brow: ACTINIC KERATOSIS (L57.0) 1:48 PM CDT DERMATOPATHOLOGY LABORATORY at 1348 CDT Clinical History R/O SCC vs. SK, [place] Papule 1:48 PM CDT DERMATOPATHOLOGY LABORATORY Gross [...] characteristic determined by the Dermatopathology Laboratory at [facility], directed by Dr. Radha Abrams. These tests need not be, and therefore are not, approved by the [place] Food and Drug Administration. The tests are used for clinical purposes. Billing Codes Specimen Charges Stain Charges 41281 1 1:48 PM CDT DERMATOPATHOLOGY LABORATORY Embedded Images 1:48 PM CDT DERMATOPATHOLOGY LABORATORY Pathology/Cytolo gy TISSUE SPECIMEN FROM SKIN / Unknown 09/30/2024 9:30 AM CDT 10/01/2024 10:28 AM CDT us Vangie Levy MD LAB - PATHOLOGY/CYTOLOGY ORD ERABLES Final Result DERMATOPATHOLOGY LABORATORY [facility] - Department of Dermatology [facility] [address] [place] [address], [address] [place] [address], [facility] [phone] documented in this encounter Visit Diagnoses Not on filedocumented in this encounter
--- OUTSIDE RECORDS SUMMARY | 2025-03-09 17:22 | XMS_ITS | Encounter Summary ---
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 Name Role Phone Tom Palomino MD Primary Care Provider [phone] Jarvis Vallecillo MD Unavailable Jose Miguel Marte MD Unavailable + [phone] Jarret Aggarwal MD Unavailable [phone] Madhuri Franco MD Unavailable [phone] Maren Allen MD Unavailable [phone] Encounter Details Date Type Department Care Team (Late st Contact Info) Description 03/28/2018 Ophth Exam [facility]mology [address] [place] [address] 1st [place] [id number] Matthew Chino MD PhD [address] [place] [address] Social History Tobacco Use Types Packs/Day Years Used Date Smoking Tobacco: Never Smokeless Tobacco: Never Alcohol Use Standard Drinks/Week Comments No 0 (1 standard drink = 0.6 oz pur e alcohol) Sex and Gender Information Value Date Recorded Sex Assigned at Not on file 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 Gender Identity Not on file Sexual Orientation [...] Normal Normal Periphery Normal Normal Care Teams Chainstitch Felled Seam Operator Relationship Specialty Start Date End Date Tom Palomino MD [address] [facility] [address] [place] [address] PCP - General 08/09/16 Jarvis Vallecillo MD [address] [facility] [address] [place] [address] Consulting Physician Neurology 03/16/19 [place] [address] [place] [address] Surgeon Ophthalmology 03/16/19 Jarret Aggarwal MD [address] [place] [id number] Consulting Physician Gastroenterology 03/16/19 Madhuri Franco MD [address] [place] [address] Consulting Physician Dermatology 03/16/19 Maren Allen MD [address] [place] [address] Consulting Physician Dermatology 04/16/22 documented as of this encounter
--- OUTSIDE RECORDS SUMMARY | 2025-03-09 17:22 | XMS_ITS | Encounter Summary ---
Author Organization [facility] Address [address] [facility] [place] [address] Care Team Providers Care Health/Safety Job Titles Name Role Phone Unavailable Primary Care Provider Unavailabl e Encounter Details Date Type Department Care Team (Late st Contact Info) Description 08/25/2023 Lab Requisition [facility] - DermPath Lab [address] [facility], [facility] [place] [address] Vangie Levy MD [address] [facility] [address] [place] [address] Social History Tobacco Use Types Packs/Day Years Used Date Smoking Tobacco: Never Assessed Sex and Gender Information Value Date Recorded Sex Assigned at Not on file 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 Gender Identity Not on file Sexual Orientation Not on file documented as of this encounter Plan of Treatment Not on file documented as of this encounter Procedures Procedure Name Priority Date/Time Associated Diagnosis Comments DERMATOPATHOLOGY Routine 08/25/2023 9:58 AM CDT documented in this encounter Results * DERMATOPATHOLOGY (08/25/2023 9:58 AM CDT) Case Report Dermatopathology Report Case: [id number] Authorizing Provider: Vangie Levy MD Collected: 08/25/2023 09:58 AM Ordering Location: [facility] Physician [facility] - Received: 08/25/2023 04:09 PM DermPath [...] characteristic determined by the Dermatopathology Laboratory at [facility], directed by Dr. Radha Abrams. These tests need not be, and therefore are not, approved by the [place] Food and Drug Administration. The tests are used for clinical purposes. Billing Codes Specimen Charges Stain Charges 02629 1 4 12:39 PM CDT DERMATOPATHOLOGY LABORATORY Embedded Images 4 12:39 PM CDT DERMATOPATHOLOGY LABORATORY Pathology/Cytolo gy TISSUE SPECIMEN FROM SKIN / Unknown 08/25/2023 9:58 AM CDT 08/25/2023 4:09 PM CDT us Vangie Levy MD LAB - PATHOLOGY/CYTOLOGY ORD ERABLES Final Result DERMATOPATHOLOGY LABORATORY [facility] - Department of Dermatology [address] [place] [address], [facility] [phone] documented in this encounter Visit Diagnoses Not on filedocumented in this encounter
== END 2025-03-09 16:43 | disposition home or self-care (01) ==
PROVIDERS: Emergency Provider Internal Medicine Critical Care Medicine; PCP Family Medicine
DX: R07.9 Chest pain, unspecified (principal); N39.0 Urinary tract infection, site not specified; E78.5 Hyperlipidemia, unspecified; I10 Essential (primary) hypertension; F03.90 Unspecified dementia, unspecified severity, without behavioral disturbance, psychotic disturbance, mood disturbance, and anxiety
CPT/HCPCS: 36415; 71045; 80053; 81001; 82550; 83605; 83690; 83880; 84484; 85025; 93005; 99284